=== PATIENT | female | born 1945 | race African-American/Black ===

== ENCOUNTER 2018-05-25 10:55 | Inpatient (IN) ==
[2018-05-25 12:24] LABS: Basophils % 0.4 % (0.0-0.8); Eosinophils # 0.1 10*3/uL (0.0-0.87); Eosinophils % 1.1 % (0.00-10.9); Hematocrit 36.7 VOL% (35.7-47.0); Hemoglobin 11.6 GM/DL (12.0-16.0); Immature Granulocytes % 0.2 %; Immature Granulocytes Absolute 0.01 #; Lymphocytes # 1.9 10*3/uL (1.4-4.0); Mean Corpuscular HGB Conc 31.6 GM/DL (32-36); Mean Corpuscular Hemoglobin 29 PG (27-34); Mean Corpuscular Volume 90.6 FL (87-102); Mean Platelet Volume 10.7 FL (9.6-12.0); Monocytes # 0.6 10*3/uL (0.11-0.8); Monocytes % 10.4 % (1.7-12.7); Neutrophils # 3.1 10*3/uL (1.4-7.4); Neutrophils % 53.9 % (38.7-73.9); Platelet Count 191 T/CUMM (130-400); Red Blood Count 4.05 MC/CUMM (3.8-5.5); Red Cell Distribution Width 13.2 % (9.3-17.3); White Blood Count 5.7 T/CUMM (4-12)
[2018-05-25 12:33] LABS: Apearance,Urine CLOUDY (Clear); Bacteria,Urine Many /HPF (Few); Bilirubin,Urine Negative (Negative); Blood, Urine Negative (Negative); Glucose,Urine (UA) Negative (Negative); Ketones,Urine Negative (Negative); Nitrite,Urine Positive (Negative); Protein,Urine Negative; Squamous Epithelial Cell,Urine Occasional /HPF (0-10); Urine Color Yellow (Yellow); Urine Specific Gravity 1.014 (1.001-1.035); WBC,Urine 359 /HPF (0-6)
[2018-05-25 12:42] LABS: Alanine Aminotransferase 18 U/L (13-56); Albumin 3.3 G/DL (3.4-5.0); Alkaline Phosphatase 116 U/L (45-117); Aspartate Amino Transferase 12 U/L (0-37); Bilirubin,Total < 0.39 MG/DL (0.2-1.0); Blood Urea Nitrogen 32 MG/DL (7-18); Calcium 8.8 MG/DL (8.5-10.1); Glucose 134 MG/DL (74-106); Osmolality,Calculated 283.7 MOS/KG (273-304); Sodium 138 MMOL/L (136-145); Total Protein 8.2 G/DL (6.4-8.3)
[2018-05-25] MEDS ORDERED: ACETAMINOPHEN 325 MG TABLET PO PRN (13:21)
[2018-05-25] MEDS ORDERED: ONDANSETRON 4 MG/2 ML VIAL IV PRN (13:21)
[2018-05-25] MEDS ORDERED: GLUCAGON 1 MG VIAL IM PRN (13:21)
[2018-05-25] MEDS ORDERED: LEVOFLOXACIN INJ 500 MG in PREMIX 1 EACH IV STA (13:21)
[2018-05-25] MEDS ORDERED: DEXTROSE 50% 25 GM/50 ML VIAL IV PRN (13:21)
[2018-05-25] MEDS ORDERED: MAGNESIUM OXIDE 400 MG TABLET PO PRN (18:27)
[2018-05-25] MEDS: SODIUM CHLORIDE 0.45% 1,000 ML IV SCH (19:44)
[2018-05-25] MEDS: DOCUSATE SODIUM 100 MG CAPSULE PO SCH (22:00)
[2018-05-25] MEDS: PRIMIDONE 50 MG TABLET PO SCH (22:01)
[2018-05-25] MEDS: GABAPENTIN 300 MG CAPSULE PO SCH (22:01)
[2018-05-25] MEDS: INSULIN LISPRO 100 UNIT/ML SUBCUT SCH (22:01)
[2018-05-25] MEDS: CARVEDILOL 12.5 MG TABLET PO SCH (22:01)
[2018-05-25] MEDS: LISINOPRIL 10 MG TABLET PO SCH (22:01)
[2018-05-25] MEDS: glipiZIDE 5 MG TABLET PO SCH (22:01)
[2018-05-25] MEDS: INSULIN GLARGINE 100 UNIT/ML SUBCUT SCH (22:02)
[2018-05-26 06:31] LABS: Basophils % 0.4 % (0.0-0.8); Eosinophils # 0.1 10*3/uL (0.0-0.87); Eosinophils % 1.6 % (0.00-10.9); Hematocrit 29.8 VOL% (35.7-47.0); Hemoglobin 9.7 GM/DL (12.0-16.0); Immature Granulocytes % 0.2 %; Immature Granulocytes Absolute 0.01 #; Lymphocytes # 2.4 10*3/uL (1.4-4.0); Lymphocytes % 48.4 % (21.3-54.2); Mean Corpuscular HGB Conc 32.6 GM/DL (32-36); Mean Corpuscular Hemoglobin 30 PG (27-34); Mean Corpuscular Volume 90.9 FL (87-102); Monocytes # 0.6 10*3/uL (0.11-0.8); Monocytes % 11.7 % (1.7-12.7); Neutrophils # 1.9 10*3/uL (1.4-7.4); Neutrophils % 37.7 % (38.7-73.9); Platelet Count 168 T/CUMM (130-400); Red Blood Count 3.28 MC/CUMM (3.8-5.5); Red Cell Distribution Width 13.2 % (9.3-17.3)
[2018-05-26 06:46] LABS: Albumin 2.6 G/DL (3.4-5.0); Bilirubin,Total 0.4 MG/DL (0.2-1.0); Calcium 8.5 MG/DL (8.5-10.1); Free T4 (Free Thyroxine) 1.59 NG/DL (0.76-1.46); Osmolality,Calculated 284.7 MOS/KG (273-304); Potassium 4.4 MMOL/L (3.5-5.1); Risk Ratio 5.96; Thyroid Stimulating Hormone 0.061 uIU/ml (0.358-3.74); Total Protein 7.1 G/DL (6.4-8.3); VLDL CHOLESTEROL 69.8 MG/DL
[2018-05-26] MEDS ORDERED: LEVOTHYROXINE 25 MCG TABLET PO SCH (07:00)
[2018-05-26 08:09] LABS: Band Neutrophils 7 % (0-10); Lymphocytes 41 % (20-55); Platelet Estimate Normal; Segmented Neutrophils 44 % (50-85); Smudge Cells Few; Total Cells Counted 100
[2018-05-26] MEDS: DOCUSATE SODIUM 100 MG CAPSULE PO SCH ×2 (08:11→21:30)
[2018-05-26] MEDS: PRIMIDONE 50 MG TABLET PO SCH ×3 (08:11→21:29)
[2018-05-26] MEDS: glipiZIDE 5 MG TABLET PO SCH ×2 (08:11→21:29)
[2018-05-26] MEDS: PANTOPRAZOLE 40 MG TABLET PO SCH (08:11)
[2018-05-26] MEDS: LISINOPRIL 10 MG TABLET PO SCH ×2 (08:11→21:29)
[2018-05-26] MEDS: GABAPENTIN 300 MG CAPSULE PO SCH ×2 (08:11→21:29)
[2018-05-26] MEDS: DIVALPROEX ER 250 MG TABLET PO SCH (08:11)
[2018-05-26] MEDS: CARVEDILOL 12.5 MG TABLET PO SCH ×2 (08:12→16:02)
[2018-05-26] MEDS: SODIUM CHLORIDE 0.45% 1,000 ML IV SCH ×3 (08:12→23:11)
[2018-05-26] MEDS: POTASSIUM CHLORIDE 10 MEQ TABLET PO SCH ×2 (08:12→16:02)
[2018-05-26] MEDS: INSULIN LISPRO 100 UNIT/ML SUBCUT SCH ×4 (08:13→21:29)
[2018-05-26] MEDS: LEVOFLOXACIN INJ 250 MG in PREMIX 1 EACH IV SCH (08:17)
[2018-05-26] MEDS: ASPIRIN EC 81 MG TABLET PO SCH (08:17)
[2018-05-26] MEDS: AMIODARONE 200 MG TABLET PO SCH (12:09)
[2018-05-26] MEDS: FUROSEMIDE 40 MG TABLET PO SCH (12:09)
[2018-05-26] MEDS: VENLAFAXINE XR 37.5 MG CAPSULE PO SCH (12:09)
[2018-05-26] MEDS: cefTRIAXone 1,000 MG in SYRINGE 1 EACH IV SCH (16:02)
[2018-05-26] MEDS: SPIRONOLACTONE 25 MG TABLET PO SCH (16:08)
[2018-05-26] MEDS: INSULIN GLARGINE 100 UNIT/ML SUBCUT SCH (21:28)
[2018-05-27] MEDS: SODIUM CHLORIDE 0.45% 1,000 ML IV SCH ×2 (03:41→15:44)
[2018-05-27 03:59] LABS: Basophils % 0.4 % (0.0-0.8); Eosinophils # 0.1 10*3/uL (0.0-0.87); Eosinophils % 2.6 % (0.00-10.9); Hematocrit 29.1 VOL% (35.7-47.0); Hemoglobin 9.2 GM/DL (12.0-16.0); Immature Granulocytes % 0.4 %; Immature Granulocytes Absolute 0.02 #; Lymphocytes # 2.5 10*3/uL (1.4-4.0); Lymphocytes % 45.3 % (21.3-54.2); Mean Corpuscular HGB Conc 31.6 GM/DL (32-36); Mean Corpuscular Hemoglobin 28 PG (27-34); Mean Corpuscular Volume 89.8 FL (87-102); Monocytes # 0.7 10*3/uL (0.11-0.8); Monocytes % 12.9 % (1.7-12.7); Neutrophils # 2.1 10*3/uL (1.4-7.4); Neutrophils % 38.4 % (38.7-73.9); Platelet Count 173 T/CUMM (130-400); Red Blood Count 3.24 MC/CUMM (3.8-5.5); White Blood Count 5.4 T/CUMM (4-12)
[2018-05-27 04:33] LABS: Albumin 2.6 G/DL (3.4-5.0); Bilirubin,Total 0.4 MG/DL (0.2-1.0); Calcium 8.2 MG/DL (8.5-10.1); Osmolality,Calculated 285.3 MOS/KG (273-304); Potassium 4.5 MMOL/L (3.5-5.1); Total Protein 6.7 G/DL (6.4-8.3)
[2018-05-27 04:49] LABS: Eosinophils 3 % (0-10); Lymphocytes 37 % (20-55); Metamyelocytes 3 %; Myelocytes 2 %; Platelet Estimate Adequate; Segmented Neutrophils 52 % (50-85); Total Cells Counted 100
[2018-05-27] MEDS: INSULIN LISPRO 100 UNIT/ML SUBCUT SCH ×4 (08:33→21:54)
[2018-05-27] MEDS: PANTOPRAZOLE 40 MG TABLET PO SCH (08:36)
[2018-05-27] MEDS: DIVALPROEX ER 250 MG TABLET PO SCH (08:36)
[2018-05-27] MEDS: glipiZIDE 5 MG TABLET PO SCH ×2 (08:36→21:53)
[2018-05-27] MEDS: DOCUSATE SODIUM 100 MG CAPSULE PO SCH ×2 (08:36→21:53)
[2018-05-27] MEDS: LISINOPRIL 10 MG TABLET PO SCH ×2 (08:36→21:53)
[2018-05-27] MEDS: POTASSIUM CHLORIDE 10 MEQ TABLET PO SCH ×2 (08:36→16:31)
[2018-05-27] MEDS: PRIMIDONE 50 MG TABLET PO SCH ×3 (08:37→21:53)
[2018-05-27] MEDS: LEVOFLOXACIN INJ 250 MG in PREMIX 1 EACH IV SCH (08:37)
[2018-05-27] MEDS: ASPIRIN EC 81 MG TABLET PO SCH (08:37)
[2018-05-27] MEDS: CARVEDILOL 12.5 MG TABLET PO SCH ×2 (08:37→16:31)
[2018-05-27] MEDS: GABAPENTIN 300 MG CAPSULE PO SCH ×2 (08:37→21:53)
[2018-05-27] MEDS: FUROSEMIDE 40 MG TABLET PO SCH (12:06)
[2018-05-27] MEDS: VENLAFAXINE XR 37.5 MG CAPSULE PO SCH (12:06)
[2018-05-27] MEDS: AMIODARONE 200 MG TABLET PO SCH (12:07)
[2018-05-27] MEDS: cefTRIAXone 1,000 MG in SYRINGE 1 EACH IV SCH (15:22)
[2018-05-27] MEDS: SPIRONOLACTONE 25 MG TABLET PO SCH (16:31)
[2018-05-27] MEDS: INSULIN GLARGINE 100 UNIT/ML SUBCUT SCH (21:54)
[2018-05-28] MEDS: SODIUM CHLORIDE 0.45% 1,000 ML IV SCH ×2 (00:09→14:50)
[2018-05-28 06:39] LABS: Alanine Aminotransferase 15 U/L (13-56); Albumin 2.6 G/DL (3.4-5.0); Alkaline Phosphatase 83 U/L (45-117); Aspartate Amino Transferase 12 U/L (0-37); Bilirubin,Total < 0.39 MG/DL (0.2-1.0); Blood Urea Nitrogen 23 MG/DL (7-18); Calcium 8.4 MG/DL (8.5-10.1); Glucose 81 MG/DL (74-106); Osmolality,Calculated 279.5 MOS/KG (273-304); Potassium 4.3 MMOL/L (3.5-5.1); Sodium 139 MMOL/L (136-145); Total Protein 6.4 G/DL (6.4-8.3)
[2018-05-28] MEDS: INSULIN LISPRO 100 UNIT/ML SUBCUT SCH ×5 (08:34→21:57)
[2018-05-28] MEDS: glipiZIDE 5 MG TABLET PO SCH ×2 (10:23→21:07)
[2018-05-28] MEDS: DOCUSATE SODIUM 100 MG CAPSULE PO SCH ×2 (10:23→21:07)
[2018-05-28] MEDS: DIVALPROEX ER 250 MG TABLET PO SCH (10:23)
[2018-05-28] MEDS: PANTOPRAZOLE 40 MG TABLET PO SCH (10:23)
[2018-05-28] MEDS: CARVEDILOL 12.5 MG TABLET PO SCH ×2 (10:23→16:11)
[2018-05-28] MEDS: ASPIRIN EC 81 MG TABLET PO SCH (10:23)
[2018-05-28] MEDS: PRIMIDONE 50 MG TABLET PO SCH ×3 (10:24→21:08)
[2018-05-28] MEDS: GABAPENTIN 300 MG CAPSULE PO SCH ×2 (10:24→21:07)
[2018-05-28] MEDS: POTASSIUM CHLORIDE 10 MEQ TABLET PO SCH ×2 (10:24→16:11)
[2018-05-28] MEDS: LISINOPRIL 10 MG TABLET PO SCH ×2 (10:25→21:08)
[2018-05-28] MEDS: LEVOFLOXACIN INJ 250 MG in PREMIX 1 EACH IV SCH (10:25)
[2018-05-28] MEDS: VENLAFAXINE XR 37.5 MG CAPSULE PO SCH (11:50)
[2018-05-28] MEDS: AMIODARONE 200 MG TABLET PO SCH (11:50)
[2018-05-28] MEDS: FUROSEMIDE 40 MG TABLET PO SCH (11:50)
[2018-05-28] MEDS: cefTRIAXone 1,000 MG in SYRINGE 1 EACH IV SCH (16:10)
[2018-05-28] MEDS: SPIRONOLACTONE 25 MG TABLET PO SCH (16:11)
[2018-05-28] MEDS: INSULIN GLARGINE 100 UNIT/ML SUBCUT SCH (21:58)
[2018-05-29] MEDS: SODIUM CHLORIDE 0.45% 1,000 ML IV SCH ×2 (00:25→06:07)
[2018-05-29 05:38] LABS: Albumin 2.6 G/DL (3.4-5.0); Bilirubin,Total 0.5 MG/DL (0.2-1.0); Calcium 8.4 MG/DL (8.5-10.1); Osmolality,Calculated 284.3 MOS/KG (273-304); Potassium 4.3 MMOL/L (3.5-5.1); Total Protein 6.6 G/DL (6.4-8.3)
[2018-05-29 07:47] VITALS: BP 132/64
[2018-05-29] MEDS: INSULIN LISPRO 100 UNIT/ML SUBCUT SCH (07:50)
[2018-05-29] MEDS: PANTOPRAZOLE 40 MG TABLET PO SCH (08:34)
[2018-05-29] MEDS: GABAPENTIN 300 MG CAPSULE PO SCH (08:34)
[2018-05-29] MEDS: CARVEDILOL 12.5 MG TABLET PO SCH (08:34)
[2018-05-29] MEDS: glipiZIDE 5 MG TABLET PO SCH (08:34)
[2018-05-29] MEDS: DIVALPROEX ER 250 MG TABLET PO SCH (08:34)
[2018-05-29] MEDS: POTASSIUM CHLORIDE 10 MEQ TABLET PO SCH (08:34)
[2018-05-29] MEDS: PRIMIDONE 50 MG TABLET PO SCH (08:35)
[2018-05-29] MEDS: ASPIRIN EC 81 MG TABLET PO SCH (08:35)
[2018-05-29] MEDS: LISINOPRIL 10 MG TABLET PO SCH (08:35)
[2018-05-29] MEDS: DOCUSATE SODIUM 100 MG CAPSULE PO SCH (08:35)
== END 2018-05-29 09:15 | disposition home health service (06) | DRG 690 ==
LOC: EDUNIT# → EDBD → N.EDINP 10:55 → N.ED 10:55 → N.2E 15:58
PROVIDERS: ADMIT Family Medicine; ATTEND Family Medicine